=== PATIENT | female | born 1975 | race Caucasian/White ===

== ENCOUNTER 2019-02-04 19:30 | Emergency (ER) | payer MEDICAID ==
[~2019-02-04] VITALS: Ht 149.9 cm; Wt 60.0 kg
[2019-02-04 20:59] LABS: GLUCOSE,POINT OF CARE 282 MG/DL (70-110)
[2019-02-04] MEDS ORDERED: GLIP10 PO (20:59)
[2019-02-04] MEDS ORDERED: METF-960 PO (20:59)
[2019-02-04] MEDS ORDERED: METHOCARBAMOL 500 MG TABLET PO ONE (22:15)
[2019-02-04] MEDS ORDERED: IBUPROFEN 600 MG TABLET PO ONE (22:15)
[2019-02-05] VITALS: BP 103/61
== END 2019-02-05 00:19 | disposition home or self-care (01) ==
LOC: EMS 19:31
DX: S13.4XXA Sprain of ligaments of cervical spine, initial encounter (principal); Z79.84 Long term (current) use of oral hypoglycemic drugs; V47.6XXA Car passenger injured in collision with fixed or stationary object in traffic accident, initial encounter; Y93.89 Activity, other specified; Y92.89 Other specified places as the place of occurrence of the external cause; Y99.8 Other external cause status
CPT/HCPCS: 72040; 72072